=== PATIENT | male | born 1960 | race Caucasian/White ===

== ENCOUNTER 2024-06-29 11:55 | Inpatient (IN) | payer OTHER ==
[2024-06-29 13:44] LABS: ABSOLUTE IMMATURE GRANULOCYTES 0.06 x10^3/uL (0.0-0.031); BASOPHILS # 0.03 x10^3/uL (0.01-0.08); HEMATOCRIT 33.3 % (40.1-51.0); HEMOGLOBIN 10.7 g/dL (13.7-17.5); MCHC 32.1 g/dl (32.3-36.5); MEAN CELL VOLUME 106.4 fl (79.0-92.2); MEAN PLT VOLUME 12.4 fl (9.4-12.4); MONOCYTE # 0.56 x10^3/uL (0.30-0.82); MONOCYTE % 6.1 % (5.3-12.2); PLATELET COUNT 58 x10^3/uL (163-337); RDW 16.2 % (12.2-16.4)
[2024-06-29] MEDS: ACETAMINOPHEN 1000 MG/100 ML BAG IVPB ONE (13:44)
[2024-06-29] MEDS: SODIUM CHLORIDE 0.9% 500 ML INFUS.BAG IV ONE ×2 (13:44→17:49)
[2024-06-29 13:47] LABS: INR 2.59 (0.83-1.09); PROTHROMBIN TIME (PATIENT) 28.2 SEC (9.7-13.0)
[2024-06-29] MEDS ORDERED: LORazepam 2 MG/ML SDV VIAL ONE (13:49)
[2024-06-29 13:52] LABS: EPI CELLS 9 /uL (0-25.1); HYALINE CASTS 7 /uL (0-3.1); PH,URINE 5.5 (5.0-8.0); URINE APPEARANCE CLOUDY; URINE BILIRUBIN 3+ (NEGATIVE); URINE COLOR DK YELLOW; URINE GLUCOSE (UA) NEGATIVE (NEGATIVE); URINE KETONE 1+ (NEGATIVE); URINE LEUK ESTERASE 1+ (NEGATIVE); URINE NITRITE POSITIVE (NEGATIVE); URINE PROTEIN 2+ (NEGATIVE); URINE WBC 218 /uL (0-25.8)
[2024-06-29 13:55] LABS: CHLORIDE 113 mmol/L (98-107); POTASSIUM 4.8 mmol/L (3.5-5.1); SODIUM 140 mmol/L (136-145)
[2024-06-29] MEDS: LORazepam 2 MG/ML SDV VIAL IVPUSH ONE (13:55)
[2024-06-29 13:57] LABS: MAGNESIUM 1.5 mg/dL (1.8-2.4)
[2024-06-29 13:58] LABS: CALCIUM 8.7 mg/dL (8.5-10.1)
[2024-06-29 13:59] LABS: ALBUMIN 1.4 g/dl (3.4-5.0); ANION GAP 11 mmol/L (4-13); BLOOD UREA NITROGEN 8.5 mg/dL (7-18); CO2 17 mmol/L (21-32); GLUCOSE,RANDOM 100 mg/dL (74-106)
[2024-06-29 14:01] LABS: CREATININE 1.3 mg/dL (0.55-1.3); SGOT/AST 141 U/L (15-37); SGPT/ALT 37 U/L (13-61)
[2024-06-29 14:02] LABS: PHOSPHOROUS 2.2 mg/dL (2.5-4.9)
[2024-06-29 14:03] LABS: TOT PROT 7.5 g/dl (6.4-8.2)
[2024-06-29 14:04] LABS: BILIRUBIN,TOTAL 5.9 mg/dL (0.2-1)
[2024-06-29 14:05] LABS: ALK PHOS 287 U/L (45-117)
[2024-06-29] MEDS ORDERED: CEFTRIAXONE 1 G/50 ML PREMIX 50 ML IVPB ONE (14:06)
[2024-06-29] MEDS ORDERED: MAGNESIUM SULFATE IN WATER 2 GM/50 ML IVPB IVPB ONE (14:06)
[2024-06-29 14:08] LABS: URINE BACTERIA 148 /uL (0-1359); URINE RBC 37 /uL (0-23.9)
[2024-06-29] MEDS: MAGNESIUM SULFATE IN WATER 2 GM/50 ML IVPB IVPB ONE (14:40)
[2024-06-29] MEDS ORDERED: ATORVASTATIN CA 80 MG TABLET (FP) ONE (15:01)
[2024-06-29] MEDS ORDERED: ASPIRIN 81 MG CHEWABLE TABLETS ONE (15:02)
[2024-06-29] MEDS: ASPIRIN 81 MG CHEWABLE TABLETS PO ONE (15:10)
[2024-06-29] MEDS: ATORVASTATIN CA 80 MG TABLET (FP) PO ONE (15:10)
[2024-06-29 15:36] LABS: BILIRUBIN,DIRECT 2.7 mg/dL (0.0-0.2)
[2024-06-29 16:53] LABS: CHLORIDE 112 mmol/L (98-107); SODIUM 141 mmol/L (136-145)
[2024-06-29 16:55] LABS: ALBUMIN 1.3 g/dl (3.4-5.0); BLOOD UREA NITROGEN 8.3 mg/dL (7-18); CALCIUM 8.9 mg/dL (8.5-10.1); CO2 17 mmol/L (21-32)
[2024-06-29 16:56] LABS: GLUCOSE,RANDOM 121 mg/dL (74-106)
[2024-06-29 16:58] LABS: SGPT/ALT 31 U/L (13-61)
[2024-06-29 16:59] LABS: SGOT/AST 123 U/L (15-37)
[2024-06-29 17:00] LABS: BILIRUBIN,TOTAL 5.3 mg/dL (0.2-1); TOT PROT 6.8 g/dl (6.4-8.2)
[2024-06-29] MEDS ORDERED: DOXYCYCLINE HYCLATE 100 MG VIAL ONE (17:05)
[2024-06-29 17:09] LABS: ALK PHOS 230 U/L (45-117); ANION GAP 12 mmol/L (4-13); POTASSIUM 2.9 mmol/L (3.5-5.1)
[2024-06-29 17:12] LABS: ALBUMIN 1.3 g/dl (3.4-5.0)
[2024-06-29 17:15] LABS: BILIRUBIN,DIRECT 3.5 mg/dL (0.0-0.2)
[2024-06-29 17:17] LABS: TOT PROT 6.7 g/dl (6.4-8.2)
[2024-06-29] MEDS: LACTATED RINGERS SOLUTION 1000 ML INFUS.BAG IV ONE ×2 (17:37→20:01)
[2024-06-29] MEDS: THIAMINE HCL 200 MG/2 ML VIAL IVPB SCH (17:37)
[2024-06-29] MEDS: DOXYCYCLINE INJECTION 100 MG in DEXTROSE 5%-WATER 100 ML IVPB ONE (17:45)
[2024-06-29] MEDS ORDERED: KCL 10 MEQ IVPB 10 MEQ/100 ML INFUS.BAG IVPB ONE ×3 (18:15→21:15)
[2024-06-29] MEDS: KCL 10 MEQ IVPB 10 MEQ/100 ML INFUS.BAG IVPB SCH (18:30)
[2024-06-29] MEDS ORDERED: POTASSIUM CHLORIDE ORAL LIQUID 20 MEQ/15 ML ONE (21:15)
[2024-06-29 21:21] LABS: URINE AMPHETAMINES NEGATIVE (NEGATIVE); URINE BARBITURATES NEGATIVE (NEGATIVE); URINE BENZODIAZEPINES NEGATIVE (NEGATIVE)
[2024-06-29 21:22] LABS: COCAINE, UR NEGATIVE (NEGATIVE); METHADONE, UR NEGATIVE (NEGATIVE); OPIATES, URI NEGATIVE (NEGATIVE); PHENCYCLIDINE,URINE NEGATIVE (NEGATIVE)
[2024-06-29] MEDS: POTASSIUM CHLORIDE TABS 10 MEQ TABLET.ER (FP) PO ONE (21:30)
[2024-06-29] MEDS ORDERED: LORazepam 1 MG TABLET PO PRN (21:37)
[2024-06-29] MEDS ORDERED: THIAMINE HCL 200 MG/2 ML VIAL ONE (22:02)
[2024-06-29 22:44] LABS: INR 2.94 (0.83-1.09); PROTHROMBIN TIME (PATIENT) 32.1 SEC (9.7-13.0)
[2024-06-29 23:03] LABS: CHLORIDE 112 mmol/L (98-107); SODIUM 136 mmol/L (136-145)
[2024-06-29 23:05] LABS: CALCIUM 8.4 mg/dL (8.5-10.1); POTASSIUM 6.7 mmol/L (3.5-5.1)
[2024-06-29 23:12] LABS: ALBUMIN 1.2 g/dl (3.4-5.0); ALK PHOS 190 U/L (45-117); ANION GAP 6 mmol/L (4-13); BILIRUBIN,TOTAL 5.9 mg/dL (0.2-1); BLOOD UREA NITROGEN 11.1 mg/dL (7-18); CO2 19 mmol/L (21-32); CREATININE 1.1 mg/dL (0.55-1.3); GLUCOSE,RANDOM 101 mg/dL (74-106); MAGNESIUM 1.7 mg/dL (1.8-2.4); SGOT/AST 247 U/L (15-37); SGPT/ALT 49 U/L (13-61)
[2024-06-29] MEDS: LORazepam 1 MG TABLET PO SCH (23:30)
[2024-06-30 02:20] LABS: ALBUMIN 1.3 g/dl (3.4-5.0)
[2024-06-30 02:23] LABS: BILIRUBIN,DIRECT 4.3 mg/dL (0.0-0.2)
[2024-06-30 02:25] LABS: BILIRUBIN,TOTAL 6.5 mg/dL (0.2-1); TOT PROT 6.8 g/dl (6.4-8.2)
[2024-06-30] MEDS: LACTATED RINGERS SOLUTION 1,000 ML/1,000 ML INFUS.BAG IV STA (03:03)
[2024-06-30 03:46] LABS: POTASSIUM 4.5 mmol/L (3.5-5.1)
[2024-06-30 04:33] LABS: MAGNESIUM 1.9 mg/dL (1.8-2.4)
[2024-06-30] MEDS ORDERED: LORazepam 1 MG TABLET ONE (05:47)
[2024-06-30 06:07] LABS: INR 2.96 (0.83-1.09); PROTHROMBIN TIME (PATIENT) 32.3 SEC (9.7-13.0)
[2024-06-30 06:21] LABS: POTASSIUM 4.1 mmol/L (3.5-5.1)
[2024-06-30 06:23] LABS: CALCIUM 8.5 mg/dL (8.5-10.1)
[2024-06-30 06:24] LABS: ALBUMIN 1.4 g/dl (3.4-5.0); BLOOD UREA NITROGEN 12.7 mg/dL (7-18); MAGNESIUM 1.6 mg/dL (1.8-2.4)
[2024-06-30 06:27] LABS: CREATININE 0.8 mg/dL (0.55-1.3); PHOSPHOROUS 1.9 mg/dL (2.5-4.9)
[2024-06-30 06:28] LABS: BILIRUBIN,TOTAL 6.7 mg/dL (0.2-1)
[2024-06-30 06:29] LABS: TOT PROT 6.9 g/dl (6.4-8.2)
[2024-06-30 07:03] LABS: HEMATOCRIT 31.4 % (40.1-51.0); HEMOGLOBIN 10.1 g/dL (13.7-17.5); MCHC 32.2 g/dl (32.3-36.5); MEAN CELL VOLUME 105.4 fl (79.0-92.2); MEAN PLT VOLUME 11.6 fl (9.4-12.4); PLATELET COUNT 55 x10^3/uL (163-337); RDW 16.2 % (12.2-16.4)
[2024-06-30] MEDS ORDERED: CEFTRIAXONE 1 G/50 ML PREMIX 50 ML IVPB ONE ×2 (09:03→11:48)
[2024-06-30] MEDS: CEFTRIAXONE 1 G/50 ML PREMIX 50 ML IVPB SCH (09:19)
[2024-06-30] MEDS ORDERED: ISOSORBIDE MONONITRATE 60 MG TAB.SR.24H (FP) PO ONE (09:24)
[2024-06-30] MEDS ORDERED: SACUBITRIL/VALSARTAN 24 MG-26 MG TABLET ONE (09:24)
[2024-06-30] MEDS ORDERED: APIXABAN 5 MG TABLET ONE (09:24)
[2024-06-30] MEDS ORDERED: ASPIRIN 81 MG CHEWABLE TABLETS PO SCH (10:00)
[2024-06-30] MEDS ORDERED: LORazepam 2 MG/ML SDV VIAL ONE ×2 (10:20→16:55)
[2024-06-30 11:49] LABS: ARTERIAL BLD GAS O2 SATURATION 97.9 % (95-98); ARTERIAL BLOOD GAS BASE EXCESS -2.3 mmol/L (-2-2); ARTERIAL BLOOD GAS PO2 95.9 mmHg (80-100); ARTERIAL BLOOD GAS pH 7.496 (7.350-7.450)
[2024-06-30] MEDS: CEFTRIAXONE 1 G/50 ML PREMIX 50 ML IVPB ONE (11:55)
[2024-06-30] MEDS: LORazepam 2 MG/ML SDV VIAL IVPUSH PRN (17:05)
[2024-06-30] MEDS: MAGNESIUM SULF 50% (8.12 MEQ/2 ML-1 GM VIAL) IVPB ONE (21:30)
[2024-06-30] MEDS: DEXTROSE 5%-NORMAL SALINE 1,000 ML IV SCH (21:30)
[2024-06-30] MEDS: POTASSIUM PHOSPHATE 30 MM in SODIUM CHLORIDE 250 ML IVPB ONE (22:46)
[2024-07-01] MEDS: THIAMINE HCL 200 MG/2 ML VIAL IVPB SCH (00:30)
[2024-07-01] MEDS: LORazepam 2 MG/ML SDV VIAL IVPUSH ONE (04:16)
[2024-07-01] MEDS: LORazepam 1 MG TABLET PO SCH (04:26)
[2024-07-01 06:52] LABS: HEMATOCRIT 28.8 % (40.1-51.0); HEMOGLOBIN 9.1 g/dL (13.7-17.5); MCHC 31.6 g/dl (32.3-36.5); MEAN CELL VOLUME 107.9 fl (79.0-92.2); MEAN PLT VOLUME 12.3 fl (9.4-12.4); PLATELET COUNT 54 x10^3/uL (163-337); RDW 16.6 % (12.2-16.4)
[2024-07-01 06:57] LABS: INR 3.01 (0.83-1.09); PROTHROMBIN TIME (PATIENT) 33.1 SEC (9.7-13.0)
[2024-07-01 07:13] LABS: POTASSIUM 4.2 mmol/L (3.5-5.1)
[2024-07-01 07:20] LABS: ALBUMIN 1.2 g/dl (3.4-5.0); BLOOD UREA NITROGEN 22.4 mg/dL (7-18)
[2024-07-01 07:22] LABS: BILIRUBIN,TOTAL 7.3 mg/dL (0.2-1); TOT PROT 6.2 g/dl (6.4-8.2)
[2024-07-01 07:23] LABS: CALCIUM 8.3 mg/dL (8.5-10.1); CREATININE 0.7 mg/dL (0.55-1.3)
[2024-07-01 07:24] LABS: MAGNESIUM 2.2 mg/dL (1.8-2.4); PHOSPHOROUS 2.9 mg/dL (2.5-4.9)
[2024-07-01] MEDS: PHENobarbital SODIUM 65 MG/1 ML VIAL IVPUSH ONE (08:54)
[2024-07-01] MEDS: CEFTRIAXONE 2 GM-D5W BAG 2 GM/50 ML BAG IVPB SCH (09:11)
[2024-07-01] MEDS: PHYTONADIONE 10 MG/1 ML AMP IVPB SCH (09:12)
[2024-07-01] MEDS: D5-NS + 20 MEQ KCL - 20 MEQ/1,000 ML INFUS.BAG IV SCH (13:54)
[2024-07-01 16:25] VITALS: BMI 38.8
[2024-07-02] MEDS ORDERED: LORazepam 0.5 MG TABLET PO PRN
[2024-07-02 00:11] VITALS: RESP 19
[2024-07-02 02:16] VITALS: TEMP 97.6
[2024-07-02] MEDS ORDERED: LORazepam 0.5 MG TABLET PO SCH (05:00)
[2024-07-03] MEDS ORDERED: LORazepam 0.5 MG TABLET PO ONE (05:00)
[2024-07-06 05:08] VITALS: BP 116/73; PULSE 92
== END 2024-07-02 02:35 | disposition short-term general hospital (02) | DRG 720 ==
LOC: JER 11:55 → JERBED 13:50 → J2W 06-30 17:33
PROVIDERS: ADMIT Internal Medicine; ATTEND Student in an Organized Health Care Education/Training Program
DX: A40.1 Sepsis due to streptococcus, group B (principal); K70.10 Alcoholic hepatitis without ascites; F10.239 Alcohol dependence with withdrawal, unspecified; N39.0 Urinary tract infection, site not specified; R45.1 Restlessness and agitation; J81.1 Chronic pulmonary edema; I24.89 Other forms of acute ischemic heart disease; I42.6 Alcoholic cardiomyopathy; E87.6 Hypokalemia; J34.2 Deviated nasal septum; L03.115 Cellulitis of right lower limb; J90 Pleural effusion, not elsewhere classified; D68.59 Other primary thrombophilia; I87.8 Other specified disorders of veins; D69.6 Thrombocytopenia, unspecified; S09.93XA Unspecified injury of face, initial encounter; W01.0XXA Fall on same level from slipping, tripping and stumbling without subsequent striking against object, initial encounter; Y92.091 Bathroom in other non-institutional residence as the place of occurrence of the external cause; Y99.9 Unspecified external cause status
CPT/HCPCS: 0241U-QW; 36415; 36600; 70450-TC; 70486-TC; 71045-TC-FY; 72125-TC; 76705-TC; 76775-TC; 80053; 80076; 80307; 81003; 82140; 82248; 82550; 82553; 82607; 82746; 82803; 82962; 83690; 83735; 84100; 84132; 84484; 85025; 85027; 85610; 85730; 86705; 86707; 86708; 87040; 87077; 87086; 87186; 87340; 87350; 93005; 93010; 93306-TC; 93970-TC; 99285-25; J0131